=== PATIENT | male | born 1930 | race Caucasian/White ===

== ENCOUNTER 2018-07-16 10:45 | Emergency (ER) | payer MEDICARE ==
[2018-07-16] MEDS ORDERED: OCTYL 2-CYANOACRYLATE 1 EACH TP ONE (12:06)
[2018-07-16] MEDS ORDERED: TETANUS/DIPHTHERIA TOXOID [ADULT] 0.5 ML VIAL IM ONE (12:07)
== END 2018-07-16 12:33 | disposition home or self-care (01) ==
LOC: EDH 10:45
DX: S51.811A Laceration without foreign body of right forearm, initial encounter (principal); I10 Essential (primary) hypertension; E78.5 Hyperlipidemia, unspecified; Z88.0 Allergy status to penicillin; Z86.73 Personal history of transient ischemic attack (TIA), and cerebral infarction without residual deficits; W22.8XXA Striking against or struck by other objects, initial encounter; Y93.89 Activity, other specified; Y92.89 Other specified places as the place of occurrence of the external cause; Y99.8 Other external cause status; Z98.890 Other specified postprocedural states
CPT/HCPCS: 12034; 90471; 90714

== ENCOUNTER → 2018-08-09 | Outpatient (CLI) | payer MEDICARE, OTHER ==
[2018-08-09 11:09] LABS: CREATININE 1.2 mg/dL (0.5-1.5)
== END | disposition home or self-care (01) ==
LOC: LAB 09:52
PROVIDERS: ATTEND Otolaryngology Plastic Surgery within the Head & Neck
DX: H90.3 Sensorineural hearing loss, bilateral (principal)
CPT/HCPCS: 36415; 82565; 84520

== ENCOUNTER 2019-08-01 10:34 | Emergency (ER) | payer OTHER ==
[2019-08-01 11:28] LABS: BASOPHILS % (AUTO) 2.3 % (0.0-5.0); EOSINOPHILS % (AUTO) 0.8 % (0.0-8.0); HEMATOCRIT 30.7 % (42-54); LYMPHOCYTES % (AUTO) 38.1 % (21.0-51.0); MEAN CORPUSCULAR HGB CONC 32.6 g/dL (32.0-36.0); MEAN CORPUSCULAR VOLUME 92.2 fL (79-99); MONOCYTES % (AUTO) 22.6 % (3.0-13.0); NEUTROPHILS % (AUTO) 36.2 % (40.0-77.0); PLATELET COUNT (AUTO) 144 K/uL (130-400); RED BLOOD CELL COUNT(AUTO) 3.33 MIL/uL (4.50-6.20); WHITE BLOOD COUNT (AUTO) 2.6 K/uL (4.8-10.8)
[2019-08-01 11:34] LABS: CREATININE 1.5 mg/dL (0.5-1.5); POTASSIUM 5.4 mmol/L (3.5-5.1)
[2019-08-01 11:39] LABS: ALBUMIN 2.2 g/dL (3.5-5.0); BILIRUBIN,TOTAL 0.7 mg/dL (0.2-1.0); TOTAL PROTEIN, SERUM 6.8 g/dL (6.0-8.3)
[2019-08-01 12:19] LABS: BASOPHILS % (MANUAL) 3 % (0-2); LYMPHOCYTES % (MANUAL) 57 % (22-44); MAN.DIFF COMMENT-IMPRESSION MANUAL DIFFERENTIAL; MONOCYTES % (MANUAL) 8 % (2-9); MYELOCYTES % 2 % (0-0); PLATELET MORPHOLOGY COMMENT ADEQUATE; REACTIVE LYMPHOCYTES 1 % (0-0); SEGMENTED NEUTROPHILS % 29 % (40-70)
[2019-08-01] MEDS ORDERED: LEVOFLOXACIN 500 MG/D5W 100 ML 100 ML ONE (13:37)
[2019-08-01] MEDS ORDERED: SODIUM CHLORIDE 0.9% 1000ML 1,000 ML IV ONE (13:38)
[2019-08-01 15:54] LABS: APPEARANCE,URINE Clear (CLEAR); BILIRUBIN,URINE Negative (NEGATIVE); COLOR,URINE Yellow (YELLOW); GLUCOSE, URINE (UA) Negative (NEGATIVE); KETONES,URINE Negative (NEGATIVE); LEUKOCYTE ESTERASE ,URINE Negative (NEGATIVE); NITRATE,URINE Negative (NEGATIVE); OCCULT BLOOD,URINE Negative (NEGATIVE); PROTEIN,URINE Negative (NEGATIVE); UROBILINOGEN,URINE 0.2 mg/dL (0.2-1.0)
[2019-08-08] MEDS ORDERED: HYDR-4153 PO (11:26)
[2019-08-08] MEDS ORDERED: FURO40TA5 PO (11:26)
[2019-08-08] MEDS ORDERED: CALC-190 PO (11:26)
[2019-08-08] MEDS ORDERED: OMEP20TA25 PO (11:26)
[2019-08-08] MEDS ORDERED: METO-391 PO (11:26)
[2019-08-08] MEDS ORDERED: LEVE750T10 PO (11:26)
[2019-08-08] MEDS ORDERED: ASPI-1005 PO (11:26)
[2019-08-08] MEDS ORDERED: FERR325T22 PO (11:26)
[2019-08-08] MEDS ORDERED: FINA5TAB41 PO (11:26)
[2019-08-08] MEDS ORDERED: PRED1TAB PO (11:26)
[2019-08-08] MEDS ORDERED: RAMI10CA69 PO (11:26)
[2019-08-08] MEDS ORDERED: SIMV10TA97 PO (11:26)
== END 2019-08-01 17:37 | disposition home or self-care (01) ==
LOC: EDH 10:34
DX: R19.7 Diarrhea, unspecified (principal); I10 Essential (primary) hypertension; D72.819 Decreased white blood cell count, unspecified; E78.5 Hyperlipidemia, unspecified; Z86.73 Personal history of transient ischemic attack (TIA), and cerebral infarction without residual deficits; Z96.649 Presence of unspecified artificial hip joint; Z88.0 Allergy status to penicillin; Z87.891 Personal history of nicotine dependence
CPT/HCPCS: 36415; 71045; 74176; 80053; 81003; 85025; 87040 ×2; 96374; 99285; J1956; J7030; 93005